=== PATIENT | female | born 1995 | race Two or more races ===

== ENCOUNTER 2019-08-25 13:25 | Emergency (ER) | payer MEDICAID ==
[~2019-08-25] VITALS: Ht 157.5 cm; Wt 65.8 kg
[2019-08-25 13:46] VITALS: BP 130/92
[2019-08-25 15:16] LABS: Urine Bacteria FEW /hpf (None Seen); Urine Blood TRACE /uL (Negative); Urine Specific Gravity 1.027 (1.001-1.035); Urine WBC 46 /hpf (0 - 5)
== END 2019-08-25 18:09 | disposition home or self-care (01) ==
LOC: ER 13:25
DX: N39.0 Urinary tract infection, site not specified (principal)
CPT/HCPCS: 81001; 81025

== ENCOUNTER 2019-11-12 11:01 | Emergency (ER) | payer MEDICAID ==
[~2019-11-12] VITALS: Ht 157.5 cm; Wt 61.2 kg
[2019-11-12 12:20] VITALS: BP 121/79
== END 2019-11-12 12:49 | disposition home or self-care (01) ==
LOC: ER 11:01
DX: S06.9X9A Unspecified intracranial injury with loss of consciousness of unspecified duration, initial encounter (principal); W22.8XXA Striking against or struck by other objects, initial encounter; Y93.41 Activity, dancing; Y92.219 Unspecified school as the place of occurrence of the external cause; Y99.8 Other external cause status
CPT/HCPCS: 70450

== ENCOUNTER 2022-03-20 08:29 | Emergency (ER) | payer MEDICAID ==
[~2022-03-20] VITALS: Ht 157.5 cm; Wt 57.2 kg
[2022-03-20 09:22] LABS: Urine Bacteria FEW /hpf (None Seen); Urine Blood 2+ /uL (Negative); Urine Hyaline Cast FEW /lpf (0 - 2); Urine Mucus FEW (None Seen); Urine WBC 137 /hpf (0 - 5)
[2022-03-20] MEDS ORDERED: cefTRIAXone W LIDOCAINE 1 GM IM IM ONE (11:15)
[2022-03-20] MEDS ORDERED: CIPR-173 PO (12:23)
[2022-03-20 13:10] VITALS: BP 129/91
== END 2022-03-20 13:10 | disposition home or self-care (01) ==
LOC: ER 08:29
DX: N12 Tubulo-interstitial nephritis, not specified as acute or chronic (principal)
CPT/HCPCS: 81001; 81025; 96372; 99283; J0696